=== PATIENT | male | born 1975 | race Caucasian/White ===

== ENCOUNTER 2019-11-01 01:36 | Inpatient (IN) | payer MEDICAID ==
[~2019-11-01] VITALS: Ht 177.8 cm; Wt 184.6 kg
[2019-11-01] VITALS (7 sets, daily range): BP systolic 152–227; BP diastolic 89–137
[2019-11-01] MEDS ORDERED: IBUPROFEN200 MG PO (01:48)
[2019-11-01] MEDS ORDERED: TYLENOL PM EX-1 EACH PO (01:48)
[2019-11-01 02:14] LABS: ABSOLUTE NEUTROPHILS 8.1 thou/uL (1.4-8.2); BASOPHILS 1.2 % (0.0-2.0); EOSINOPHILS 4.4 % (0.0-3.0); HEMATOCRIT 45.7 % (42.0-52.0); HEMOGLOBIN 15.1 gm/dL (14.0-18.0); LYMPHOCYTES 15.1 % (24.0-44.0); MCH 28.4 pg (26.0-34.0); MCHC 33.1 g/dL (28.0-37.0); MCV 85.8 fL (80.0-100.0); MONOCYTES 6.4 % (1.0-8.0); PLATELET COUNT 266 thou/uL (150-400); POLYS 72.9 % (36.0-66.0); RBC 5.32 mil/uL (4.50-6.00); RDW 16.6 % (10.5-14.5); WBC 11.2 thou/uL (4.0-11.0)
[2019-11-01 02:45] LABS: ANION GAP 10 mmol/L (7-16); BUN 10 mg/dL (7-18); CHLORIDE 102 mmol/L (98-107); CO2 29 mmol/L (21-32); CREATININE 1.3 mg/dL (0.7-1.3); GLUCOSE 107 mg/dL (74-106); POTASSIUM 3.5 mmol/L (3.5-5.1); SODIUM 141 mmol/L (136-145)
[2019-11-01 02:53] LABS: TROPONIN-I <0.06 ng/mL (<0.06)
[2019-11-01] MEDS ORDERED: ORPHENADRINE C100 M2 PO (03:44)
[2019-11-01 05:11] LABS: CHOLESTEROL 165 mg/dL (<200); HDL CHOLESTEROL 39 mg/dL (>40); LDL CHOLESTEROL 101 mg/dL (<100); SERUM ASSESSMENT Clear; TC:HDL 4.2 Ratio (Not establshd); TRIGLYCERIDE 127 mg/dL (<150); VLDL 25 mg/dL (<40)
--- NOTE | 2019-11-01 06:16 | NUR ---
ADMIT FROM ED. PT WAS LIVING IN HOTEL AWAKENED SOA BLE PAIN AND CALLED EMT. PT IS OBESE. PT CAN AMBULATE WITH WALKER SHORT DISTANCES. SOA WITH EXERTION. 02 PER NC 4L FOR COMFORT. LUNGS WITH CRACKLES. BLE CELLULITUS WEEPING. PT VERBALIZED UNDERSTANDING TO CALL FOR ASSIST WITH TRANSFERS. IV ANTIBIOTICS INTACT. PT DENIES PAIN STATED PRN IN ED RELEIVED BLE DISCOMFORT.
--- NOTE | 2019-11-01 07:31 | NUR ---
DAY NURSE NOTIFIED OF NEW MEDICATIONS FOR BP AND ECHO.
--- NOTE | 2019-11-01 07:31 | EKG ---
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 : 1975 Requested By: Deborah Vasquez Order Number: [id number] MD: Douglas Medina Measurements Intervals [place] Rate: 99 P: 59 MS: 174 QRS: 27 QRSD: 89 T: 181 QT: 369 QTc: 474 Interpretive Statements Sinus rhythm Right atrial enlargement Abnormal T, consider ischemia, lateral leads No previous ECG available for comparison Electronically Signed On 11-01-2019 7:31:07 CDT by Douglas Medina [email or web address] <ELECTRONICALLY SIGNED> By: Douglas Medina MD, FACC 11/01/19 0731 0144 0144 Douglas Medina MD, [facility] /EPI
--- NOTE | 2019-11-01 12:24 | NUR ---
PER YAZMIN ARROYO: WILL CHECK WITH DR. MIRANDA, BUT IF PT IS NEGATIVE WILL RESWAB FOR COVID.
--- NOTE | 2019-11-01 14:27 | NUR ---
INITIAL ASSESSMENT: Received consult. CLEMENTE reviewed chart and spoke with nursing and attending physician. Pt was admitted due to chest pain/dyspnea/cellulitis. Pt placed in Enhanced Isolation to r/o COVID-19. Pt's test is currently pending. Pt is afebrile and on 2L of O2. Pt is on IV abx and IV lasix. PT/OT ordered to evaluate pt when COVID test results are available. CLEMENTE has placed call to pt's room multiple times today. No answer. No cell phone number listed for pt. Per chart, pt has been living in a hotel. Pt does not have health insurance. Med Assist to follow up with pt to assist with financial assistance/Medicaid application. CLEMENTE will continue to call pt. CLEMENTE is following to assist as needed with discharge planning.
--- NOTE | 2019-11-01 14:55 | NUR ---
ASSUMED CARE APPROX 0700. PT ALERT AND ORIENTED X4. ASSESSMENT CHARTED. BP CHRONICALLY ELEVATED. PT AFEBRILE. ON 2LNC AND USES WHEN HE IS SHORT OF BREATH. OTHERWISE ON ROOM AIR. NO RESPIRATORY DISTRESS NOTED. PT GETS SHORT OF BREATH WHILE AMBULATING IN ROOM, BUT RECOVERS QUICKLY. PT C/O BILAT LE PAIN FROM CELLULITIS. PT SLOWLY PROGRESSING TOWARDS PLAN OF CARE GOALS. WILL CONTINUE TO MONITOR.
[2019-11-02 00:27] VITALS: BP 163/93
[2019-11-02 01:06] LABS: GLYCOHEMOGLOBIN (HGB A1C) 5.8 % (4.8-5.6)
--- NOTE | 2019-11-02 03:54 | NUR ---
Patient making slow progress towards utcome goals. Rhythm stable. BP improving on Lopressor. Afebrile. Oxygenation optimal with 2L/NC. Good bilateral extremity pain control with Hydrocodone. Gait steady, Low fall risks. Calls out appropriately for needs. Bilateral leg dressings intact. 10/31 COVID swab pending, maintaining enhance precautions pending results. Diuresing from Lasix. Bilateral lower extremity US and ECHO ordered still needs to be done.
[2019-11-02 05:19] LABS: HEMATOCRIT 43.7 % (42.0-52.0); HEMOGLOBIN 14.4 gm/dL (14.0-18.0); MCH 28.5 pg (26.0-34.0); MCV 86.3 fL (80.0-100.0); RBC 5.06 mil/uL (4.50-6.00); RDW 16.9 % (10.5-14.5); WBC 9.2 thou/uL (4.0-11.0)
[2019-11-02 05:40] LABS: ANION GAP 9 mmol/L (7-16); BUN 12 mg/dL (7-18); CALCIUM 8.1 mg/dL (8.5-10.1); CHLORIDE 99 mmol/L (98-107); CO2 29 mmol/L (21-32); GLUCOSE 102 mg/dL (74-106); MAGNESIUM 1.9 mg/dL (1.8-2.4); SODIUM 137 mmol/L (136-145); TROPONIN-I <0.06 ng/mL (<0.06)
[2019-11-02 06:02] VITALS: BP 127/71
--- NOTE | 2019-11-02 06:34 | NUR ---
Big discrepancy in weight from admission. Questionable accuracy as patient states he was not weight on admission. Patient also did not save urine so output is inaccurate. Patient instructed on using BSC so output can be measured accurately.
--- NOTE | 2019-11-02 13:23 | NUR ---
CLEMENTE reviewed chart and spoke with nursing and attending physician. Pt remains in Enhanced Isolation to r/o COVID-19. Test is pending. Pt is afebrile and has required 2L of O2. Pt is on IV abx and IV lasix. Therapy has been ordered to evaluate pt when COVID results are available. CLEMENTE spoke with pt via phone. Introduced role of CLEMENTE. Pt is alert/orientated and states that he is currently staying at [facility]: [address] [address], [place] [address]. Pt states he has been unemployed since the COVID pandemic started and he has been staying at the hot. Pt is unsure how much longer he will be able to stay there, due to his financial situation. Pt doesn have health insurance and states he does not have a PCP for follow up care. SW left Health [facility] info/prescription discount care on pt's chart to provide to pt upon discharge. SW also left info regarding housing assistance. Pt would benefit from [facility] RN visits for wound care. CLEMENTE discussed with pt who is agreeable. CLEMENTE faxed referral to intake at [facility]. Confirmed info was received with Mayra. Clinical team and administration to review the referral. Attending physician is willing to follow for orders. Should pt need assistance with medications at time of discharge. Face Sheet and orders will need to be faxed to [facility]. [facility] has a contract with two [facility] after hours and on the weekends. Form on front of pt's chart. Will need to be completed. Pt will need cab ride to pharmacy and to [facility] when discharged. Nursing to contact warehouse shipper for cab voucher. Contact info for HH placed in pt's discharge summary. Finalized discharge orders/summary will need to be faxed to . CLEMENTE is following and is available to assist as needed with discharge planning. [facility]--
--- NOTE | 2019-11-02 14:41 | NUR ---
ASSUMED CARE APPROX 0700. PT ALERT AND ORIENTED X4. ASSESSMENT AND VSS. PT AFEBRILE THIS SHIFT. PT DENIES PAIN. ON ROOM AIR W/O DISTRESS NOTED. PT COVID RESULTS NEGATIVE. 2ND COVID SWAB SENT TO LAB. RESULTS PENDING. PT WEIGHED TODAY AND ACCURATE WT DOCUMENTED. TELE MONITOR REMOVED PER ORDERS. WILL CONTINUE TO MONITOR.
[2019-11-02 15:55] VITALS: BP 152/110
[2019-11-02 22:42] VITALS: BP 173/95
[2019-11-03 04:58] VITALS: BP 116/88
[2019-11-03 05:06] LABS: ANION GAP 7 mmol/L (7-16); BUN 13 mg/dL (7-18); CALCIUM 8.7 mg/dL (8.5-10.1); CHLORIDE 100 mmol/L (98-107); CO2 31 mmol/L (21-32); CREATININE 1.2 mg/dL (0.7-1.3); GLUCOSE 105 mg/dL (74-106); POTASSIUM 3.5 mmol/L (3.5-5.1); SODIUM 138 mmol/L (136-145)
[2019-11-03 05:30] LABS: TROPONIN-I <0.06 ng/mL (<0.06)
--- NOTE | 2019-11-03 07:18 | NUR ---
getting around well. resting tonight. started piperacillin tonight. denies pain. careplan reviewed.
[2019-11-03 07:57] VITALS: BP 161/101
--- NOTE | 2019-11-03 15:30 | NUR ---
ASSUMED CARE OF PT AT 0700. PT AOX4 IN NO ACUTE DISTRESS. UP AD KEITH. ABX INFUSING PER ORDER. BLE DRESSINGS CHANGED PER ORDER. ENHANCED ISO D/C PER ID REC - WAITING TO TRANSFER OFF UNIT.
[2019-11-03 17:16] VITALS: BP 141/99
[2019-11-03 17:24] VITALS: BP 141/99
--- NOTE | 2019-11-03 19:43 | NUR ---
Received patient from [facility], arrived in the unit approximately 1630; transferred to bed safely. On room air. Vital signs stable. On MS, not on telemetry; no complains of chest pain, crushing sensation and heaviness. On heart healthy diet- tolerating well; no nausea, no vomiting and no abdominal pain noted. Continent of bowel and bladder, using bedside commode to urinate and able to go to the toilet to have a bowel movement; output to be measured- pt is on diuretics. With SL at R hand- intact and flushing well; on IV antibiotics. With bilateral LE cellulitis- C/D/I; dressing changed prior to transfer as reported. Up ad esau, independent with ADLs. Informed patient re: hospital protocol for not smoking- Night RN informed that pt's afterschool babysitter kept for safety. Assisted in ADLs. No complaints of pain made during assessment- informed him re: time of next pain medication. To continue monitoring patient.
[2019-11-03 20:40] VITALS: BP 160/94
[2019-11-04 03:35] VITALS: BP 146/78
[2019-11-04 05:45] LABS: CALCIUM 8.6 mg/dL (8.5-10.1); CREATININE 1.1 mg/dL (0.7-1.3); POTASSIUM 3.7 mmol/L (3.5-5.1)
[2019-11-04 09:10] VITALS: BP 168/90
--- NOTE | 2019-11-04 11:37 | 2DMMODE ---
[facility] [place] [address] 2 D/M-MODE ECHOCARDIOGRAM Name: JARRETT MATHIS Room #: 464-P ADM IN M.R.#: [id number] Admission: 11/01/19 Attend Phys: Woo Norman Discharge: Date of : 71 Report #: [id number] THIS REPORT FOR: cc: FAM - No family physician/PCP FAM - No family physician/PCP Douglas Medina MD [facility] ~ APPROVED REPORT Study performed: 11/03/2019 15:10:19 EXAM: Comprehensive 2D, Doppler, and color-flow Echocardiogram Patient Location: Bedside Room #: 364 Status: on-call BSA: 2.82 HR: 82 bpm BP: 161/101 mmHg Rhythm: NSR Other Information Study Quality: Fair Technically limited study due to body habitus, lung disease. Risk Factors: Cardiac Risk Factors: Smoking, HTN Indications Dyspnea Chest Pain 2D Dimensions IVSd: 14.44 (7-11mm) LVOT Diam: 21.50 (18-24mm) LVDd: 47.22 mm PWd: 14.80 (7-11mm) Ascending Ao: 32.71 (22-36mm) LVDs: 35.88 (25-40mm) Aortic Root: 34.54 mm LV Single Plane 4CH: 42.04 % LV Single Plane 2CH: 36.12 % Biplane EF: 33.2 % Volumes Left Atrial Volume (Systole) Single Plane 4CH: 79.00 mL Single Plane 2CH: 132.19 mL LA ESV Index: 38.00 mL/m2 [facility] [address] [address] 2 D/M-MODE ECHOCARDIOGRAM Name: JARRETT MATHIS Room #: 464-P ADM IN M.R.#: [id number] Admission: 11/01/19 Attend Phys: Woo Patel Discharge: Date of : 71 Report #: [id number] Aortic Valve AoV Peak Jason.: 1.20 m/s AO Peak Gr.: 5.78 mmHg LVOT Max P.12 mmHg LVOT Max V: 1.01 m/s HALLEY Vmax: 3.06 cm2 Mitral Valve E/A Ratio: 1.4 MV Decel. Time: 183.15 ms MV E Max Jason.: 0.92 m/s MV A Jason.: 0.68 m/s MV PHT: 53.11 ms IVRT: 72.66 ms Pulmonary Valve PV Peak Jason.: 1.01 m/s PV Peak Gr.: 4.06 mmHg Tricuspid Valve RAP Estimate: 7.00 mmHg Left Ventricle Left ventricle is grossly normal size. There is normal LV segmental wall motion. There is normal left ventricular wall thickness. The left ventricular systolic function is normal. The left ventricular ejection fraction is within the normal range. LVEF is 50-55%. This study is not technically sufficient to allow evaluation of the LV diastolic function. Right Ventricle The right ventricle is normal size. The right ventricular systolic function is normal. Atria Left atrium is mildly dilated. The right atrium size is normal. Aortic Valve The aortic valve is normal in structure. No aortic regurgitation is present. There is no aortic valvular stenosis. Mitral Valve The mitral valve is normal in structure. Trace mitral regurgitation. No evidence of mitral valve stenosis. Tricuspid Valve [facility] [address] [address] 2 D/M-MODE ECHOCARDIOGRAM Name: DELFINAJARRETT BALBUENA Room #: 464-P [facility] IN M.R.#: [id number] Admission: 11/01/19 Attend Phys: Woo Patel Discharge: Date of : 71 Report #: [id number] The tricuspid valve is normal in structure. There is no tricuspid valve regurgitation noted. Pulmonic Valve The pulmonary valve is normal in structure. There is no pulmonic valvular regurgitation. Great Vessels The aortic root is normal in size. Aortic arch is not well visualized. The ascending aorta is normal in size. IVC is normal in size and collapses >50% with inspiration. Pericardium There is no pericardial effusion. <Conclusion> The left ventricular systolic function is normal. There is normal LV segmental wall motion. LVEF is 50-55%. The aortic valve is normal in structure. No aortic regurgitation or stenosis. The mitral valve is normal in structure. Trace mitral regurgitation. Pulmonary artery systolic pressure could not be reliably ascertained There is no pericardial effusion. <ELECTRONICALLY SIGNED> By: Douglas Medina MD, FAC 11/04/19 1137 113 113 Douglas Medina MD, FAC /INF
--- NOTE | 2019-11-04 12:15 | NUR ---
The patient demanded that the staff administrate Vancomycin after 4 hours' Piperacillian was done, also refused to have another IV access.
[2019-11-04 16:10] VITALS: BP 149/100
--- NOTE | 2019-11-04 18:23 | NUR ---
Following the orders, changed the dressing on both legs at 1800 according to the patient's request.
--- NOTE | 2019-11-04 22:18 | NUR ---
PATIENT ALERT AND ORIENTED X4. UP ADLIB. DRESSINGS TO BILATERAL LOWER LEGS DRY AND INTACT. AM NURSE CHANGED TODAY. IVPB INFUSING W/O COMPLICATION. DENIES PAIN AT TIME OF NOTE. WILL MONITOR.
[2019-11-05 05:47] LABS: CALCIUM 8.6 mg/dL (8.5-10.1); CREATININE 1.1 mg/dL (0.7-1.3); POTASSIUM 4.3 mmol/L (3.5-5.1)
[2019-11-05 07:00] VITALS: BP 147/96
[2019-11-05 16:11] VITALS: BP 133/88
[2019-11-05 20:02] VITALS: BP 148/73
--- NOTE | 2019-11-05 20:16 | NUR ---
Assumed patient care at 0715. Vital signs stable, LS clear/diminished, ABD soft and non-tender. Patient has BLLE with wraps that are clean, warm, dry and in place. Patient denies pain to these areas. Patient is alert and oriented x's 4. He has removed his socks to bilateral feet and was re-directed for walking in hallway with bare feet. He verbalized an understanding of this education. Report given to on-coming nurse.
--- NOTE | 2019-11-06 05:20 | NUR ---
patient assessed. skin warm and dry. sitting up in chair. MOVES IN ROOM BY HIMSELF. IS ALERT X 4. LUNGS CTA. HAS LOWER LEGS CELLULITIS. HAS EDEMA NOTED TO LOWER EXTREMITIES. HAS A LEFT UPPER ARM SL. HEALTHY INFUSING FLUIDS. IS A LOW FALL RISK. ON ROOM AIR. TO BED PER SELF AND TO BED. GIVEN SPOINGE BATH GIVEN. LEGS ELEVATESD. DENIES ANY PAIN. TAKING DIET WELL. REMAINS GETTING ANTIBIOTICS. CONT PLAN OF CARE.
[2019-11-06 07:30] VITALS: BP 145/76
[2019-11-06 15:19] VITALS: BP 117/66
--- NOTE | 2019-11-06 15:28 | NUR ---
CARE TEAM INDICATED THAT PT IS TO HAVE AN MRI THIS DAY. [facility] HAS ACCEPTED PT FOR SOME [facility] VISITS UPON DC. PT STILL ON IV ABX. IT IS ANTICIPATED THAT PT WILL BE DISCHARGING BACK TO THE HOTEL HE HAD BEEN STAYING AT [facility]. CM TO FOLLOW INDICATED WITH DC PLANNING.
[2019-11-06 20:01] VITALS: BP 144/89
--- NOTE | 2019-11-07 02:28 | NUR ---
ASSUMED CARE OF PT AT 1900HES. PT AOX4 AND LETS NEEDS BE KNOWN. PT IS UP AD KEITH. ABX TREATMENT CONTINUED. PT DENIES SIGNIFICANT PAIN, NAUSEA OR SOA. ASSESSMENT CHARTED. PT REPORTS HAVING LOOSE BM AND WAS ASKED TO INFORM RN AFTER NEXT BM. PT WAS ABLE TO GET COMFORTABLE AND SLEEP PART OF THE SHIFT. VSS AN NO S/S OF ACUTE DISTRESS. WILL CONTINUE TO MONITOR
[2019-11-07 07:59] VITALS: BP 126/71
--- NOTE | 2019-11-07 14:47 | NUR ---
PT CONTINUES ON IV ABX VANC. PT SEEN BY OT FOR LYMPHADEMA TREATMENTS AND WOUND CARE. CLINICAL UPDATES SENT TO [facility] THEY HAD INDICATED THEY COULD PROVIDE SOME MY[facility] VISITS UPON DC. HOPEFUL THAT PT CAN BE SWITCHED TO ORALS UPON DC. CM FOLLOWING AND ABLE TO ASSIST WITH VOUCHERING MEDS AND TRANSPORT UPON DC.
--- NOTE | 2019-11-07 15:40 | NUR ---
FAXED CLINICAL UPDATE TO [facility] ([facility] VISITS) RECEIVED CONFIRMATION AND SPOKE WITH JUDD IN INTAKE THEY WILL FOLLOW FOR A FEW VISITS AFTER DC.
--- NOTE | 2019-11-07 18:47 | NUR ---
PT IS AOX4, VSS, NO C/O PAIN. PT UP AD KEITH, CALLS APPROPRIATELY. WILL CONTINUE TO MONITOR.
[2019-11-07 20:31] VITALS: BP 110/73
[2019-11-08 07:20] LABS: HEMOGLOBIN 15.1 gm/dL (14.0-18.0); MCH 28.7 pg (26.0-34.0); MCHC 32.8 g/dL (28.0-37.0); MCV 87.2 fL (80.0-100.0); RBC 5.27 mil/uL (4.50-6.00); RDW 16.8 % (10.5-14.5); WBC 8.4 thou/uL (4.0-11.0)
--- NOTE | 2019-11-08 07:32 | NUR ---
PROGRESS PT A/O X4 UP AD KEITH REPORTED HEADACHE THAT WAS RELIEVED WITH TYLENOL. VANCOMYCIN TROUGH 35 CRITICALLY HIGH NOTIFIED CHANGED INFUSION TIME TO Q12HRS INSTEAD OF Q8HRS. PT INFORMED OF CHANGE. LYMPEDEMA WRAPS IN PLACE, LUNGS CLEAR VOIDING QS INDEPENDENTLY IN BR. REQUESTING OJ AND [employer]ERS FREQUENTLY CONTINUE POC.
[2019-11-08 07:40] LABS: ALBUMIN 3.1 g/dL (3.4-5.0); CALCIUM 9.2 mg/dL (8.5-10.1); CREATININE 1.3 mg/dL (0.7-1.3); MAGNESIUM 2.5 mg/dL (1.8-2.4); POTASSIUM 4.2 mmol/L (3.5-5.1); TOTAL BILIRUBIN 0.5 mg/dL (0.2-1.0)
[2019-11-08 08:13] VITALS: BP 131/87
--- NOTE | 2019-11-08 11:58 | HC ---
[facility] [address] [place] [address] CONSULTATION Name: JARRETT MATHIS Room #: 464- ADM IN M.R.#: [id number] Admission: 11/01/19 Attend Phys: Woo Norman Discharge: Date of : 71 Report #: [id number] THIS REPORT FOR: cc: POLO - No family physician/PCP POLO - No family physician/PCP Curtis Agarwal MD ~ CC: POLO physician/PCP Woo Norman DATE OF SERVICE: 11/01/2019 WOUND CARE CONSULTATION PERSONAL PHYSICIAN: None. CHIEF COMPLAINT: Bilateral lower extremity ulcerations with edema. HISTORY OF PRESENT ILLNESS: This is a 44-year-old morbidly obese white male, who was admitted to the Emergency Department for shortness of breath and chest pain and is currently being evaluated by Cardiology, but on admission, the patient was noted to have chronic ulcerations on bilateral lower extremities, which he states has been present for the past several weeks, but has gotten worse with increased swelling and tenderness in both legs. The patient has not sought medical treatment for these wounds. The patient states his legs have been swollen for many months. The patient states these wounds started out as blisters and ruptured and have now become chronic ulcerations. The patient denies any other associated ulcerations. PAST MEDICAL HISTORY: Significant for hypertension, morbid obesity, sleep apnea. CURRENT MEDICATIONS: Tylenol and ibuprofen. DRUG ALLERGIES: None. SOCIAL HISTORY: The patient smokes 1-2 packs of cigarettes daily, drinks alcohol socially. The patient is currently homeless. FAMILY HISTORY: Not pertinent to current medical condition. REVIEW OF SYSTEMS: CONSTITUTIONAL: The patient denies fevers or chills. NEUROLOGIC: The patient denies numbness, tingling, weakness in arms or legs. EYES: No complaints. ENT: No complaints. CARDIAC: The patient had chest tightness prior to admission, which is now [facility] [address] [place] [address] CONSULTATION Name: JARRETT MATHIS Room #: 464-P [facility] IN .R.#: [id number] Admission: 11/01/19 Attend Phys: Woo Norman Discharge: Date of : 71 Report #: [id number] resolved. Denies palpitations. RESPIRATORY: The patient had shortness of breath with chest tightness, but no cough or wheezes. GASTROINTESTINAL: The patient denies nausea, vomiting, abdominal pain. GENITOURINARY: The patient denies urgency or frequency. MUSCULOSKELETAL: No complaints. SKIN: The patient has chronic ulcerations, bilateral lower extremities with cellulitis. PHYSICAL EXAMINATION: VITAL SIGNS: Stable. The patient is afebrile. GENERAL: This is a morbidly obese white male, who is in no obvious distress. HEENT: Normocephalic, atraumatic. Mucous membranes are moist. Sclerae white. NECK: Supple, nontender. LUNGS: Slightly diminished breath sounds heard throughout, but no wheezes. HEART: Regular. ABDOMEN: Obese, soft, otherwise nontender. EXTREMITIES: The patient has 3+ edema bilateral lower extremities with bilateral superficial ulcerations on both pretibial regions with serosanguineous drainage noted without significant odor. There is increased erythema, warmth and tenderness to both lower extremities. Distal pulses are 1+. Bilateral heels are intact. NEUROLOGIC: Cranial nerves 2-12 grossly intact. Motor and sensory grossly intact. LABORATORY VALUES: White count 11.2, hemoglobin 15.1, sed rate is 15, hemoglobin A1c is 5.8. CT scan of the chest for PE protocol was negative for pulmonary emboli. IMPRESSION: 1. Bilateral lower extremity venous stasis ulcerations with associated cellulitis. 2. The patient is currently under evaluation for COVID-19. 3. Hypertension. 4. Morbid obesity. 5. Generalized debility. 6. History of tobacco abuse. PLAN: We will start Xeroform, ABD, Kerlix and Pradeep to bilateral lower extremities from toes to knee with Xeroform going over the open ulcerations. We will obtain a wound culture from the ulcerations. We will order arterial Doppler for slightly diminished pulses distally. The patient currently has enhanced respiratory precautions secondary to pending final COVID-19 evaluation. With the patient's morbid obesity, we will have him in a low air loss mattress and have him turned every 2 hours. We will utilize physical and occupational therapy as needed for strengthening. [place] [address] CONSULTATION Name: JARRETT MATHIS Room #: 464-P ADM IN M.R.#: [id number] Admission: 11/01/19 Attend Phys: Woo Norman Discharge: Date of : 71 Report #: [id number] medications. We will continue to follow the patient. I appreciate ability to consult. <ELECTRONICALLY SIGNED> By: Curtis Agarwal MD 11/08/19 1158 1558 [id number] Curtis Agarwal MD /nt
--- NOTE | 2019-11-08 18:12 | NUR ---
PT IS AOX4, VSS, NO C/O PAIN AT THIS TIME. PT UP AD KEITH, IV PATENT IN LUE, PT CALLS APPROPRIATELY. WILL CONTINUE TO MONITOR.
[2019-11-08 20:42] VITALS: BP 136/78
--- NOTE | 2019-11-09 02:58 | NUR ---
PT IS A&OX4. PT'S VITAL SIGNS STABLE. IV IS IN HIS LEFT UPPER ARM NEAR THE INNER AREA OF HIS SHOULDER. ROOM AIR. PT TAKES MEDICATION APPROPRIATELY. PT HAS BLE WRAPPED. PT COMPLAINS OF A HEADACHE AT A 5. I ADMINISTERED HYDROCODONE. PT DENIES ANY BODILY PAIN. PT IS NOW SLEEPING IN HIS ROOM. WILL CONTINUE TO MONITOR.
[2019-11-09 07:20] VITALS: BP 96/59
[2019-11-09 14:50] VITALS: BP 125/71; BP 96/61
--- NOTE | 2019-11-09 15:05 | NUR ---
ASSUMED PT CARE THIS AM. PT VITAL SIGNS STABLE. CALENDER OPERATOR HELPER RECORDED LOW BP THIS AM, BUT BLOOD PRESSURE CUFF WAS NOT READING CORRECTLY. BP TAKEN MANUALLY AND WAS FOUND TO BE STABLE. PT A&OX4. WOUND DRESSING WERE CHANGED AT 1000 BY OT. PATIENT SHOWERED SELF TODAY. PATIENT REPORTS NO PAIN, AND AMBULATES TO THE BATHROOM TO URINATE. PT HAD ANTIBIOTICS RUNNING THIS AM, AND HIS IV SITE HAS NO REDNESS, DRAINAGE, OR PAIN.
[2019-11-09 19:32] VITALS: BP 123/92
--- NOTE | 2019-11-10 04:34 | NUR ---
VSS-AFEBRILE. RESTED WELL THROUGH NIGHT WITH FEW NEEDS. C/O BILATERAL LEG PAIN, RELIEVED WITH PO PAIN MEDICATION. OOB AD KEITH-STEADY ON FEET. CALLS APPROPRIATELY FOR ANY NEEDED ASSISTANCE.
[2019-11-10 08:57] LABS: HEMATOCRIT 44.3 % (42.0-52.0); HEMOGLOBIN 14.7 gm/dL (14.0-18.0); MCH 28.6 pg (26.0-34.0); MCHC 33.3 g/dL (28.0-37.0); PLATELET COUNT 308 thou/uL (150-400); RBC 5.16 mil/uL (4.50-6.00); RDW 16.5 % (10.5-14.5); WBC 7.6 thou/uL (4.0-11.0)
[2019-11-10 09:13] LABS: CALCIUM 8.9 mg/dL (8.5-10.1); CREATININE 1.5 mg/dL (0.7-1.3); MAGNESIUM 2.6 mg/dL (1.8-2.4); POTASSIUM 4.6 mmol/L (3.5-5.1); TOTAL BILIRUBIN 0.4 mg/dL (0.2-1.0); TOTAL PROTEIN 7.8 g/dL (6.4-8.2)
[2019-11-10 10:31] LABS: ABSOLUTE NEUTROPHILS 5.1 thou/uL (1.4-8.2)
[2019-11-10 10:32] LABS: ANISOCYTOSIS 1+
[2019-11-10 10:35] VITALS: BP 130/63
[2019-11-10 15:53] VITALS: BP 124/86
--- NOTE | 2019-11-10 17:49 | NUR ---
PT IS AOX4, VSS, SLIGHT HEADACHE THIS AM. PT REPORTS ALVAREZ CONTROLLED WITH TYLENOL. PT IS UP AD KEITH, DRESSING ON BLE ARE CDI, LEGS ELEVATED IN RECLINER MOST OF DAY. PT CALLS APPROP. WILL CONTINUE TO MONITOR.
[2019-11-11 06:29] LABS: CALCIUM 9.2 mg/dL (8.5-10.1); CREATININE 1.7 mg/dL (0.7-1.3); POTASSIUM 5.3 mmol/L (3.5-5.1)
[2019-11-11 07:20] VITALS: BP 116/68
[2019-11-11 15:10] VITALS: BP 103/64
--- NOTE | 2019-11-11 16:38 | NUR ---
PT A&OX4, VSS, GENERALIZED PAIN. NO SIGNS OF DISTRESS. PATIENT UP TO RECLINER TODAY. DRESSING CHANGED BILAT LEGS. WILL CONTINUE TO MONITOR.
[2019-11-11 19:35] VITALS: BP 121/62
--- NOTE | 2019-11-12 04:41 | NUR ---
PT IS A&OX4. PT IS UP AD KEITH. IV IS IN HIS LEFT FOREARM. VITAL SIGNS STABLE. PT CALLS OUT APPROPRIATELY WHEN NEEDING ASSISTANCE. I CHANGED THE TEGADERM ON PTS IV. PT DENIES PAIN. WILL CONTINUE TO MONITOR.
[2019-11-12 10:23] LABS: CALCIUM 9.2 mg/dL (8.5-10.1); CREATININE 1.3 mg/dL (0.7-1.3); POTASSIUM 4.9 mmol/L (3.5-5.1)
[2019-11-12 15:26] VITALS: BP 125/73
[2019-11-12 20:00] VITALS: BP 139/77
--- NOTE | 2019-11-12 20:16 | NUR ---
Assumed pt care this am, VS stable. DRessing on both loegs are c/d/i. REquested for a complete shower, dressing removed, wound care done by OT nurse. POC followed with no signs or verbalizations of distress. Pt is steady on his gait and independent or most ADL's. Endorsed to the night nurse.
--- NOTE | 2019-11-13 08:05 | NUR ---
Assumed pt care at 1900. A/OX4,VSS. Up ad esau in room. Dsg to BLE in place,pt encouraged to elevate extremities when sitting down on the recliner but hesitant to,but later layed in bed for part of the night. C/o a headache at HS medicated with Tylenol with relief reported. IV patent on LFA/ABTs. Encouraged to call as needed.
[2019-11-13 08:24] VITALS: BP 130/79
--- NOTE | 2019-11-13 16:00 | NUR ---
FAXED CLINICAL UPDATE TO [facility] HH SPOKE WITH PANKAJ IN INTAKE SHE RECEIVED UPDATE. DP TO FOLLOW.
--- NOTE | 2019-11-13 19:21 | NUR ---
PT CARE ASSUMED AT 0700, PT ALERT AND ORENTED X4, DENIES CHEST PAIN, NAUSEA AND VOMITTING. PT IS ON ROOM AIR, SOB WITH EXERTION. PT WOUND CARE COMPLETED PER ORDER. PT UP AD KEITH TO BATHROOM. ASSESSMENT AND VITAL SIGNS COMPLETED. CALL LIGHT AND ABLE WITHIN REACH. DENIES ANY NEEDS.
[2019-11-13 19:37] VITALS: BP 103/67
--- NOTE | 2019-11-14 03:39 | NUR ---
Assumed pt care at 1900. A/OX4,VSS.Denies pain on assessment. Up ad esau in room w/o problems voiced. Dressings C/D/I to bilateral lower extremities,encouraged to keep extremities when sitting up on the chair. Pt resting in bed at this time, call light/personal items within reach,will continue to monitor pt.
[2019-11-14 09:16] VITALS: BP 127/73
[2019-11-14 10:44] LABS: CREATININE 1.3 mg/dL (0.7-1.3); POTASSIUM 4.3 mmol/L (3.5-5.1)
--- NOTE | 2019-11-14 11:51 | NUR ---
Received awake on bed. Due medications given as prescribed, able to swallow meds w/o difficulty. On room air. Vital signs stable. On MS, not on telemetry; no complain of chest pain, crushing sensation and heaviness. A+Ox4. On heart healthy diet- tolerating well; no nausea, no vomiting and no abdominal pain noted. Continent of bowel and bladder, able to go to the toilet independently. With L FA SL- on IV antibiotics. With bilateral LE cellulitis- dressing in place. Assited in ADLs. Complained of pain, due PRN pain meds given as prescribed. Pt seen and examined by Dr De La Cruz this AM, possible discharge on tuesday after IV antibiotic completion- pt informed; CM informed as well. To continue monitoring patient.
--- NOTE | 2019-11-14 16:12 | NUR ---
ID HAD INDICATED THAT THEY ANTICIPATE PT CONTINUEING ON VANCO THROUGH THER END OF THE WEEK THEN TRANSITION TO ORALS. PT HAD BEEN SET UP WITH SOME [facility] VISITS FROM [facility]. CM FOLLOWING INDICATED WITH DC PLANNING.
[2019-11-14 16:19] VITALS: BP 133/80
[2019-11-14 19:40] VITALS: BP 114/70
[2019-11-15 07:26] VITALS: BP 121/84
--- NOTE | 2019-11-15 08:05 | NUR ---
Assumed pt care at 1900. A/OX,VSS. Denied pain on assessment. Up ad esau in room. Dressings in place to BLE C/D/I. Pt continues on IV antibiotics looking forward to dc 11/16/19. Encouraged to keep extremities elevated when sitting down on the recliner and doing so.
--- NOTE | 2019-11-15 08:29 | NUR ---
Nutrition: Weekly follow up. Pt continues on heart healthy diet, eating incredibly well. Anticipated to possibly discharge Tuesday (tomorrow) after IV antibiotics completed, w/ transition to orals. Continues w/ bilateral LE cellulitis. Pt seen last week by RD and quickly refused any education regarding weight loss/heart healthy diet; but importance stressed. Eating 100% of majority of meals with a 98% meal average the last 4 days. Recent BM 11/13. Will discontinue Ensure MAX supplement as pt not consuming and eating fine without. Changing to low nutrition risk given adequate PO consumption and past RD refusal for education/assistance.
[2019-11-15 15:29] VITALS: BP 132/67
--- NOTE | 2019-11-15 16:49 | NUR ---
PT A&OX4, VSS, DENIES PAIN. LYPHEMDEMA NURSE IN TO DO WOUND CARE. PATIENT TOOK SHOWER TODAY. IV LEFT FOREARM INFILTRATED. NO SIGNS OF DISTRESS. WILL CONTINUE TO MONITOR.
[2019-11-15 20:06] VITALS: BP 137/94
--- NOTE | 2019-11-16 04:07 | NUR ---
patient aox4 makes needs known. patient dressing on ble are c/d/i. patient denied pain or discomfort. patient ambulates to the bathroom slowly with steady gaits. patient asleep in the recliner breathing regular and unlaboured.
[2019-11-16 05:59] LABS: HEMATOCRIT 44.1 % (42.0-52.0); HEMOGLOBIN 14.5 gm/dL (14.0-18.0); MCH 28.6 pg (26.0-34.0); MCHC 32.9 g/dL (28.0-37.0); RBC 5.06 mil/uL (4.50-6.00); RDW 16.3 % (10.5-14.5); WBC 6.4 thou/uL (4.0-11.0)
[2019-11-16 07:30] LABS: CALCIUM 9.1 mg/dL (8.5-10.1); CREATININE 1.2 mg/dL (0.7-1.3); MAGNESIUM 2.2 mg/dL (1.8-2.4); POTASSIUM 4.2 mmol/L (3.5-5.1)
[2019-11-16 07:31] VITALS: BP 136/82
--- NOTE | 2019-11-16 12:17 | NUR ---
PT A&OX4, VSS, DENIES PAIN. PT DENIES DIZZINESS, SOA. DRESSING CHANGE COMPLETED. NO SIGNS OF DISTRESS. WILL CONTINUE TO MONITOR.
[2019-11-16 15:24] VITALS: BP 117/77
[2019-11-16 15:44] VITALS: BP 117/77
--- NOTE | 2019-11-16 15:45 | NUR ---
IT IS ANTICPATED THAT PT WILL BE ABLE TO SWITCH TO ORAL ABX AND DISCAHRGE BACK TO [place] EITHER TODAY OR TOMORROW. PT IS TO DISCHARGE BACK TO [facility]: [id number] [facility] [address], [place] [id number]. HE WILL BE STAYING THERE THROUGH DECEMBER 01, 2019. PT IS TO HAVE SOME [facility] VISITS FOR WC AND LYMPHEDEMA THROUGH [facility]. FAX ORDERS TO . CALL AND NOTIFY OF DC. PT WILL NEED CAB RIDE HOME.
[2019-11-16 19:23] VITALS: BP 142/90
[2019-11-16] MEDS ORDERED: ADULT LOW DOSE81 MG PO (21:25)
[2019-11-16] MEDS ORDERED: FLONASE 0.05%50 MCG NASAL (21:25)
[2019-11-16] MEDS ORDERED: PEPCID20 MG PO (21:25)
[2019-11-16] MEDS ORDERED: DEMADEX20 MG PO (21:25)
[2019-11-16] MEDS ORDERED: VENTOLIN HFA 1818 GM INH (21:25)
[2019-11-16] MEDS ORDERED: METOPROLOL SUCC50 MG PO (21:25)
--- NOTE | 2019-11-17 00:07 | NUR ---
ASSUMED CARE OF PT AT 1900. PT IS A/O X4 AND UP AD KEITH. DISCHARGE WAS PUT ON HOLD THERE IS MEDICATIONS AND MEDICAL EQUIPMENT THAT WOULD NOT BE ACCESSIBLE TO THE PT UPON LEAVING CURRENTLY. THIS WAS DETERMINED BY PRESIDENT AND CHIEF EXECUTIVE OFFICER, FORM BUILDER HELPER OVER NURSING, AND BUSINESS ACCOUNT EXECUTIVE. PT IS SOB WITH EXERTION AND WOULD NOT HAVE ACCESS TO THE NEEDED NEBULIZER UPON LEAVING. PT NOTIFIED. AT THIS TIME, PT IS SITTING HIS CHAIR AND APPEARS TO BE WATCHING TV. CALL LIGHT IS WITHIN REACH. WILL CONTINUE TO MONITOR.
[2019-11-17 07:37] VITALS: BP 111/74
--- NOTE | 2019-11-17 10:27 | NUR ---
ASSUMED CARE OF PATIENT AT 0900. ASSESSMENT CHARTED. PATIENT REFUSED MEDS WANTING TO LEAVE SOON POSSIBLE. A&OX4, DENIES PAIN, BELONGINGS RETRIEVED. VOICES NO OTHER NEEDS, LEFT UNIT AT 1020
[2019-11-17 10:29] VITALS: BP 111/74
== END 2019-11-17 11:31 | disposition home health service (06) | DRG 871 ==
LOC: ER 01:36 → EROBS 04:00 → 4W 04:00 → 3W 04:00 → 4W 11-03 15:49
PROVIDERS: Emergency Medicine; Internal Medicine; Nurse Practitioner; Nurse Practitioner Family; ADMIT Hospitalist; ATTEND Hospitalist
DX: A41.9 Sepsis, unspecified organism (principal); I50.33 Acute on chronic diastolic (congestive) heart failure; N17.0 Acute kidney failure with tubular necrosis; L97.929 Non-pressure chronic ulcer of unspecified part of left lower leg with unspecified severity; L97.919 Non-pressure chronic ulcer of unspecified part of right lower leg with unspecified severity; L03.116 Cellulitis of left lower limb; Z68.43 Body mass index [BMI] 50.0-59.9, adult; L03.115 Cellulitis of right lower limb; E66.01 Morbid (severe) obesity due to excess calories; G47.33 Obstructive sleep apnea (adult) (pediatric); Z60.2 Problems related to living alone; E03.9 Hypothyroidism, unspecified; E87.6 Hypokalemia; Z79.899 Other long term (current) drug therapy; I11.0 Hypertensive heart disease with heart failure; I73.9 Peripheral vascular disease, unspecified; B95.62 Methicillin resistant Staphylococcus aureus infection as the cause of diseases classified elsewhere; I87.2 Venous insufficiency (chronic) (peripheral); Z20.828 Contact with and (suspected) exposure to other viral communicable diseases; Z71.6 Tobacco abuse counseling; Z79.82 Long term (current) use of aspirin; Z59.0 Homelessness
CPT/HCPCS: 10040; 10080; 10879